=== PATIENT | female | born 1990 | race Two or more races ===

== ENCOUNTER 2024-03-08 09:12 | Emergency (ER) | payer OTHER ==
[2024-03-08] MEDS ORDERED: Ketorolac Tromethamine 30 MG (1 mL) VIAL ONE (09:54)
[2024-03-08 10:43] LABS: Influenza A by NAA Not Detected (NotDetected); Influenza B by NAA Not Detected (NotDetected); SARS-CoV-2 NAA Rapid Test Not Detected (NotDetected)
[2024-03-08] MEDS ORDERED: Dexamethasone 10 MG/ML VIAL ONE (11:14)
== END 2024-03-08 11:25 | disposition home or self-care (01) ==
LOC: CSHERS 09:12
DX: B34.9 Viral infection, unspecified (principal); Z55.0 Illiteracy and low-level literacy; F17.290 Nicotine dependence, other tobacco product, uncomplicated
CPT/HCPCS: 87081; 87430; 96372; 99283; J1100; J1885